=== PATIENT | female | born 2000 | race Hispanic/Latino ===

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

== ENCOUNTER 2019-01-13 06:38 | Outpatient (CLI) | payer OTHER ==
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
== END 2019-01-13 06:39 | disposition home or self-care (01) ==
LOC: BICULT 06:38
PROVIDERS: ATTEND Family Medicine
DX: O09.892 Supervision of other high risk pregnancies, second trimester (principal); Z3A.27 27 weeks gestation of pregnancy; O32.1XX0 Maternal care for breech presentation, not applicable or unspecified
CPT/HCPCS: 76805

== ENCOUNTER 2019-04-08 05:49 | Inpatient (IN) | payer OTHER ==
[2019-04-08 06:24] VITALS: BMI 47.5
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
[2019-04-08] MEDS ORDERED: Methylergonovine 0.2 MG/ML VIAL IM PRN (09:50)
[2019-04-08] MEDS ORDERED: Diphenoxylate HCl/Atropine Tablet PO PRN (09:50)
[2019-04-08] MEDS ORDERED: Butorphanol Tartrate 1 MG/ML VIAL SLOW IVP PRN (09:50)
[2019-04-08] MEDS ORDERED: HYDROcodone/Acetaminophen 5/325 mg Tablet PO PRN ×3 (09:50→21:10)
[2019-04-08] MEDS ORDERED: Carboprost 250 MCG/ML AMP IM PRN (09:50)
[2019-04-08] MEDS ORDERED: Lidocaine 1% (PF) 30 ML VIAL SC PRN (09:50)
[2019-04-08] MEDS ORDERED: Misoprostol 200 MCG TAB PR PRN (09:50)
[2019-04-08] MEDS ORDERED: Ibuprofen 800 MG TAB PO PRN (09:50)
[2019-04-08] MEDS ORDERED: Ondansetron PF 4 MG/2 ML Vial IVP PRN ×3 (09:50→21:10)
[2019-04-08] MEDS ORDERED: Promethazine HCl 25 MG/ML VIAL IM PRN ×2 (09:50→12:48)
[2019-04-08] MEDS ORDERED: NS / Oxytocin 40 units/1000ml 1,000 ML IV PRN (09:50)
[2019-04-08] MEDS ORDERED: NS w/ Oxytocin 10 units 500 ML IV SCH ×2 (10:00)
[2019-04-08 10:19] LABS: Hemoglobin 10.8 g/dL (12.0-16.0); Mean Corpuscular HGB CONC 33.5 g/dL (32.0-36.0); Mean Corpuscular Hemoglobin 29.2 pg (25.0-35.0); Mean Platelet Volume 7.8 fL (7.4-10.4); Platelet Count 208 thou/uL (130-400); RBC Distribution Width 15.6 % (11.5-14.5); White Blood Cell (WBC) Count 9.6 thou/uL (4.8-10.8)
[2019-04-08 11:07] LABS: HBSAg Index 0.37 S/CO (0-0.99); Hep B Surf Ag Non-Reactive S/CO (NonReactive); Syphilis Antibody Nonreactive (Nonreactive); Syphilis Antibody Index 0.03 S/CO (<1.00 Non-Reactive)
[2019-04-08] MEDS ORDERED: ePHEDrine/0.9% NaCl/PF SYRINGE 50 mg/10 ml SLOW IVP PRN (12:48)
[2019-04-08] MEDS ORDERED: Naloxone HCl 0.4 mg/ml Vial IVP PRN ×2 (12:48)
[2019-04-08] MEDS ORDERED: Lactated Ringer's 500 ML IV PRN (12:48)
[2019-04-08] MEDS ORDERED: Acetaminophen 325 MG TAB PO PRN (12:48)
[2019-04-08] MEDS ORDERED: diphenhydrAMINE 50 MG/ML VIAL IVP PRN (12:48)
[2019-04-08] MEDS ORDERED: Fentanyl 4 mcg/Bup 0.1% Cadd 100 ML ONE (12:49)
[2019-04-08] MEDS ORDERED: Fentanyl 4 mcg/Bupivacaine 0.1% Cassette 100 ML EPIDURAL SCH (13:00)
[2019-04-08] MEDS ORDERED: Communication Order-Pharmacy FS SCH (13:00)
[2019-04-08] MEDS: Lactated Ringer's 1,000 ML IV SCH (13:10)
[2019-04-08] MEDS ORDERED: diphenhydrAMINE 25 MG CAP PO PRN (21:10)
[2019-04-08] MEDS ORDERED: NS / Oxytocin 40 units/1000ml 1,000 ML IV SCH (21:10)
[2019-04-08] MEDS ORDERED: Benzocaine-Menthol 82.5 ML CAN TOP PRN (21:10)
[2019-04-08] MEDS ORDERED: Bisacodyl 10 MG SUPP PR PRN (21:10)
[2019-04-08] MEDS ORDERED: Lanolin Ointment 7 GM TUBE TOP PRN (21:10)
[2019-04-08] MEDS ORDERED: Milk Of Magnesia 30 ML UDCUP PO PRN (21:10)
[2019-04-08] MEDS: Ibuprofen 800 MG TAB PO SCH (21:49)
[2019-04-08] MEDS: Docusate Calcium (SURFAK) 240 MG CAP PO SCH (21:49)
[2019-04-09 05:55] LABS: Hemoglobin 10.2 g/dL (12.0-16.0); Mean Corpuscular HGB CONC 33.9 g/dL (32.0-36.0); Mean Corpuscular Hemoglobin 29.6 pg (25.0-35.0); Mean Corpuscular Volume 87.4 fL (78.0-98.0); Platelet Count 184 thou/uL (130-400); RBC Distribution Width 15.5 % (11.5-14.5); Red Blood Cell (RBC) Count 3.45 mill/uL (4.00-5.20); White Blood Cell (WBC) Count 11.1 thou/uL (4.8-10.8)
[2019-04-09] MEDS: Ibuprofen 800 MG TAB PO SCH ×2 (06:22→14:13)
[2019-04-09] MEDS: Docusate Calcium (SURFAK) 240 MG CAP PO SCH (08:45)
[2019-04-09] MEDS: Ferrous Sulfate 325 MG TAB PO SCH ×2 (08:46→16:21)
[2019-04-09] MEDS ORDERED: Prenatal Vitamin 1 TAB PO SCH (09:00)
[2019-04-09 16:03] VITALS: BP 119/67; TEMP 98.3
[2019-04-09] MEDS ORDERED: Measles/Mumps/Rubella 10 MCG/0.5 ML VIAL SC ONE (18:30)
== END 2019-04-09 19:33 | disposition home or self-care (01) | DRG 807 ==
LOC: L&D/OP 05:49 → L&D 10:06 → 3SW 20:41
PROVIDERS: ADMIT Family Medicine; ATTEND Family Medicine
PROC: 10E0XZZ Delivery of Products of Conception, External Approach (ICD-10-PCS; principal; 2019-04-08)
DX: O99.214 Obesity complicating childbirth (principal); Z37.0 Single live birth; E66.9 Obesity, unspecified; Z3A.39 39 weeks gestation of pregnancy
CPT/HCPCS: 36415; 85027; 86780; 86850; 86900; 86901; 87340; 90707; J2590

== ENCOUNTER 2019-04-13 09:59 | Emergency (ER) | payer OTHER ==
[2019-04-13 10:33] LABS: Bilirubin Negative (Negative); Blood, Urine Small (Negative); Clarity Clear (Clear); Glucose, Urine (Dipstick) Negative (Negative); Leukocyte Negative (Negative); Nitrite Negative (Negative); Protein, Urine (Dipstick) Negative (Neg-Trace); Specific Gravity, Urine 1.015 (1.005-1.030); Urobilinogen 0.2 mg/dL (0.2-1.0); pH, Urine 6.5 (5.0-9.0)
[2019-04-13 10:35] LABS: Bacteria/HPF None Seen HPF (None Seen); RBC/HPF 0-3 HPF (0-3); Squamous Epithelial 0-3 HPF (0-3); WBC/HPF 0-3 HPF (0-3)
== END 2019-04-13 10:53 | disposition home or self-care (01) ==
LOC: SCSER 09:59
DX: O99.89 Other specified diseases and conditions complicating pregnancy, childbirth and the puerperium (principal); R10.30 Lower abdominal pain, unspecified; Z79.1 Long term (current) use of non-steroidal anti-inflammatories (NSAID); Z79.899 Other long term (current) drug therapy
CPT/HCPCS: 51701; 81003; 81015; A4353

== ENCOUNTER 2020-02-28 22:28 | Emergency (ER) | payer MEDICAID, OTHER | END 2020-02-28 23:36 | disposition home or self-care (01) | LOC: ERS 22:28 | DX: J30.9 Allergic rhinitis, unspecified (principal); H66.93 Otitis media, unspecified, bilateral | CPT/HCPCS: 99283 ==

== ENCOUNTER 2020-04-15 20:54 | Emergency (ER) | payer SELFPAY ==
[2020-04-15 22:13] LABS: Bacteria/HPF None Seen HPF (None Seen); Bilirubin Negative (Negative); Blood, Urine 1+ (Negative); Clarity Clear (Clear); Glucose, Urine (Dipstick) Normal (Negative); Leukocyte Negative Leu/uL (Negative); Nitrite Negative (Negative); Protein, Urine (Dipstick) 20 mg/dL (Neg-Trace); RBC/HPF Greater than 50 HPF (0-3); Squamous Epithelial 0-3 HPF (0-3); Urobilinogen Normal mg/dL (Less than 2)
[2020-04-15 22:13] LABS: #Eosinphils 0.1 thou/uL (0.0-0.7); #Lymphocytes 1.7 thou/uL (1.20-3.40); #Monocytes 0.7 thou/uL (0.11-0.59); #Neutrophils 6.2 thou/uL (1.40-6.50); %Basophils 0.6 % (0.0-1.0); %Eosinophils 1.4 % (0.0-10.0); %Lymphocytes 19.9 % (28.0-48.0); %Monocytes 7.6 % (0.0-4.0); %Neutrophils 70.5 % (31.0-61.0); Hemoglobin 11.6 g/dL (12.0-16.0); Mean Corpuscular HGB CONC 34.7 g/dL (32.0-36.0); Mean Corpuscular Hemoglobin 30.8 pg (25.0-35.0); Mean Corpuscular Volume 88.5 fL (78.0-98.0); Mean Platelet Volume 7.6 fL (7.4-10.4); Platelet Count 270 thou/uL (130-400); RBC Distribution Width 13.3 % (11.5-14.5); Red Blood Cell (RBC) Count 3.77 mill/uL (4.00-5.20); White Blood Cell (WBC) Count 8.8 thou/uL (4.8-10.8)
[2020-04-15] MEDS ORDERED: Acetaminophen 500 MG TAB ONE (23:53)
--- NOTE | 2020-04-16 09:35 | ULT ---
PELVIC ULTRASOUND: HISTORY: Seven weeks since last menstrual period. Pelvic pain. FINDINGS: Rela-time imaging of the pelvis was obtained transabdominally as well as with an endovaginal probe. This shows an intrauterine gestational sac with yolk sac and pole. [place] to rump length measur ements are 1 cm corresponding to 7 weeks 1 day. Gestational sac measurements are 2 cm corresponding to 6 weeks 6 days. heart rate is 130 b.p.m. The right ovary is not visualized. The left ovary is normal in appearance. DOPPLER EVALUATION WITH SPECTRAL ANALYSIS: Normal flow is shown to the left ovary. IMPRESSION: Intrauterine gestational sac and pole with measurements corresponding to a gestational age of 7 weeks 0 days, estimated date of delivery 12/02/2020. POS: [facility]
== END 2020-04-16 01:06 | disposition home or self-care (01) ==
LOC: ERS 20:54
DX: O99.89 Other specified diseases and conditions complicating pregnancy, childbirth and the puerperium (principal); R10.32 Left lower quadrant pain; Z3A.01 Less than 8 weeks gestation of pregnancy
CPT/HCPCS: 36415; 76856; 81003; 81015; 84702; 85025; 86850; 86900; 86901; 96360; 96361

== ENCOUNTER 2020-05-20 14:05 | Emergency (ER) | payer MEDICAID, OTHER ==
[2020-05-20 14:39] LABS: Bilirubin Negative (Negative); Blood, Urine 3+ (Negative); Clarity Clear (Clear); Glucose, Urine (Dipstick) Normal (Negative); Ketone, Urine 40 mg/dL (Negative); Leukocyte 250 Leu/uL (Negative); Nitrite Negative (Negative); Protein, Urine (Dipstick) 20 mg/dL (Neg-Trace); RBC/HPF Greater than 50 HPF (0-3); Specific Gravity, Urine 1.024 (1.002-1.036); Urobilinogen Normal mg/dL (Less than 2); WBC/HPF 21-50 HPF (0-3)
[2020-05-20 14:40] LABS: Bacteria/HPF 1+ HPF (None Seen)
[2020-05-20 15:01] LABS: #Lymphocytes 0.9 thou/uL (1.20-3.40); #Monocytes 0.5 thou/uL (0.11-0.59); #Neutrophils 8.3 thou/uL (1.40-6.50); %Basophils 0.1 % (0.0-1.0); %Eosinophils 0.2 % (0.0-10.0); %Lymphocytes 8.8 % (28.0-48.0); %Monocytes 4.9 % (0.0-4.0); Hemoglobin 11.8 g/dL (12.0-16.0); Mean Corpuscular HGB CONC 33.2 g/dL (32.0-36.0); Mean Corpuscular Hemoglobin 29.8 pg (25.0-35.0); Mean Corpuscular Volume 89.7 fL (78.0-98.0); Mean Platelet Volume 7.2 fL (7.4-10.4); Platelet Count 223 thou/uL (130-400); RBC Distribution Width 13.6 % (11.5-14.5); Red Blood Cell (RBC) Count 3.94 mill/uL (4.00-5.20); White Blood Cell (WBC) Count 9.6 thou/uL (4.8-10.8)
[2020-05-20] MEDS ORDERED: Metoclopramide HCl 10 MG/2 ML VIAL ONE (15:20)
[2020-05-20] MEDS ORDERED: diphenhydrAMINE 50 MG/ML VIAL ONE (15:20)
[2020-05-20 15:23] LABS: ALT (SGPT) 13 U/L (8-55); AST (SGOT) 13 U/L (5-34); Alkaline Phosphatase 50 U/L (40-100); Anion Gap 16 mmol/L (10-20); BUN (Urea Nitrogen) 8 mg/dL (7.0-18.7); Bilirubin, Total 0.4 mg/dL (0.2-1.2); Calc. Creatinine Clearance 0 mL/min (70-130); Calcium 9.3 mg/dL (7.8-10.44); Carbon Dioxide 18 mmol/L (22-29); Chloride 103 mmol/L (98-107); Estimated GFR-MDRD Greater than 90; Globulin 3.4 g/dL (2.4-3.5); Glucose 82 mg/dL (70-105); Potassium 3.6 mmol/L (3.5-5.1); Protein, Total 7.4 g/dL (6.0-8.3); Sodium 133 mmol/L (136-145)
--- NOTE | 2020-05-20 16:30 | RAD ---
XR Chest 1 View Portable HISTORY: Dyspnea COMPARISON: 10/31/2017 FINDINGS: The heart size is normal. The lungs are without focal areas of consolidation, pneumothorax or pleural effusions. IMPRESSION: No radiographic evidence of acute cardiopulmonary process.
--- NOTE | 2020-05-20 17:28 | CT ---
Exam: CT angiogram of the chest HISTORY: Dyspnea COMPARISON: None TECHNIQUE: CT angiogram of the chest is performed in the axial plane. Three-dimensional reformatted i mages are submitted for interpretation FINDINGS: Mediastinum: No mass, lymphadenopathy or hematoma. HEART: Normal size. No significant pericardial fluid. Aorta: No aneurysm or dissection Upper solid abdominal viscera: No abnormality enhancement. Trachea and central bronchi: Patent Pleural spaces: No effusion Lung parenchyma: No masses or consolidation. Pneumothorax: None Osseous structures: No lytic or blastic lesions Pulmonary arteries:Suboptimal evaluation the pulmonary nodules system due to timing of contrast bolus . No obvious central filling defect. Evaluation of the lobar, segmental and subsegmental arteries is limited. IMPRESSION: 1. Limited evaluation due to timing of contrast bolus. No obvious central pulmonary artery embolism.
[2020-05-20] MEDS ORDERED: Acetaminophen 500 MG TAB ONE (19:39)
[2020-05-21 12:13] LABS: SARS-CoV-2 MS2 Positive; SARS-CoV-2 N Gene Negative; SARS-CoV-2 S Gene Negative; SARS-CoV-2 by NAA Not Detected (NotDetected); SARS-CoV-2 orf1ab Negative
== END 2020-05-20 19:56 | disposition home or self-care (01) ==
LOC: ERS 14:05
DX: O23.42 Unspecified infection of urinary tract in pregnancy, second trimester (principal); O99.512 Diseases of the respiratory system complicating pregnancy, second trimester; J39.9 Disease of upper respiratory tract, unspecified; Z20.828 Contact with and (suspected) exposure to other viral communicable diseases; Z3A.15 15 weeks gestation of pregnancy
CPT/HCPCS: 36415; 71045; 71275; 80053; 81003; 81015; 85025; 85379; 87077; 87086; 87635; 93005; 96365; 96375; J1200; J2765; U0003

== ENCOUNTER 2020-07-12 14:36 | Outpatient (CLI) | payer OTHER ==
--- NOTE | 2020-07-12 15:31 | ULT ---
OB ULTRASOUND: HISTORY: anatomy FINDINGS: A single live intrauterine gestation is seen with measurements corresponding to an estimated gestatio nal age of 19 weeks 5 daysand NAVNEET at 12/01/2020. The estimated weight measures 310 g or 11 ounces (2% by Hadlock criteria). biometry: BPD: 4.39 cm, 19 weeks 2 days HC: 17.25 cm, 19 weeks 6 days AC: 14.30 cm, 19 weeks 5 days FL: 3.17 seen, 19 weeks 6 days heart rate: 149bpm Placenta: Anterior Placenta previa: No SHAMEKA: 15.1cm Cervical length: 4.2cm A three-vessel cord, cord insertion, kidneys, urinary bladder, stomach, lateral ventricles, cer ebellum, spine, upper and lower extremities are visualized. The cisterna magna, 4 chambered heart and lips/nose are not well seen due to patient's body habitus. No definite anomalies are seen i n the visualized portions. IMPRESSION: Single live intrauterine gestation of 19 weeks 5 daysestimated gestational age and NAVNEET at 12/01/2020
== END 2020-07-12 14:37 | disposition home or self-care (01) ==
LOC: BICULT 14:36
PROVIDERS: ATTEND Family Medicine
DX: Z34.82 Encounter for supervision of other normal pregnancy, second trimester (principal); Z3A.19 19 weeks gestation of pregnancy
CPT/HCPCS: 76805

== ENCOUNTER 2020-11-12 08:18 | Outpatient (CLI) | payer OTHER ==
[2020-11-12 18:22] LABS: SARS-CoV-2 PCR by NAA Not Detected (NotDetected)
== END 2020-11-12 08:19 | disposition home or self-care (01) ==
LOC: LABBT 08:18
PROVIDERS: ATTEND Family Medicine
DX: Z01.812 Encounter for preprocedural laboratory examination (principal); Z20.822 Contact with and (suspected) exposure to COVID-19
CPT/HCPCS: 87635; U0003; U0005

== ENCOUNTER 2020-11-15 19:15 | Inpatient (IN) | payer OTHER ==
[~2020-11-15 19:15] MED LIST: Bupivacaine HCl 0.25%/Epi 0.0005/PF 10 ML VIAL FS ONE
[2020-11-15] MEDS ORDERED: Carboprost 250 MCG/ML AMP IM PRN (20:17)
[2020-11-15] MEDS ORDERED: Ondansetron PF 4 MG/2 ML Vial IVP PRN (20:17)
[2020-11-15] MEDS ORDERED: Butorphanol Tartrate 1 MG/ML VIAL SLOW IVP PRN (20:17)
[2020-11-15] MEDS ORDERED: Misoprostol 200 MCG TAB PR PRN (20:17)
[2020-11-15] MEDS ORDERED: Lidocaine 1% (PF) 30 ML VIAL SC PRN (20:17)
[2020-11-15] MEDS ORDERED: HYDROcodone/Acetaminophen 5/325 mg Tablet PO PRN (20:17)
[2020-11-15] MEDS ORDERED: Promethazine HCl 25 MG/ML VIAL IM PRN (20:17)
[2020-11-15] MEDS ORDERED: Methylergonovine 0.2 MG/ML VIAL IM PRN (20:17)
[2020-11-15] MEDS ORDERED: hydrALAZINE 20 MG/ML VIAL SLOW IVP PRN (20:17)
[2020-11-15] MEDS ORDERED: NS / Oxytocin 40 units/1000ml 1,000 ML IV PRN (20:17)
[2020-11-15] MEDS ORDERED: Ibuprofen 800 MG TAB PO PRN (20:17)
[2020-11-15] MEDS ORDERED: Diphenoxylate HCl/Atropine Tablet PO PRN (20:17)
[2020-11-15] MEDS ORDERED: NS w/ Oxytocin 30 units 500 ML IVPB SCH ×2 (20:30)
[2020-11-15 20:34] VITALS: BMI 47.8
[2020-11-15] MEDS ORDERED: Penicillin G Potassium 5 MILL.UNITS in Sodium Chloride 0.9% 100 ML IVPB SCH (21:30)
[2020-11-15 21:34] LABS: Hemoglobin 11.6 g/dL (12.0-16.0); Mean Corpuscular HGB CONC 33.5 g/dL (32.0-36.0); Mean Corpuscular Hemoglobin 29.1 pg (27.0-31.0); Mean Corpuscular Volume 86.9 fL (78.0-98.0); Platelet Count 231 thou/uL (130-400); RBC Distribution Width 16.2 % (11.5-14.5); White Blood Cell (WBC) Count 9.3 thou/uL (4.8-10.8)
[2020-11-15] MEDS: Lactated Ringer's 1,000 ML IV SCH (21:35)
[2020-11-15] MEDS: Misoprostol 100 MCG TAB PO SCH (21:41)
[2020-11-15] MEDS: Penicillin G 2.5 MILL.units 2.5 MILL.UNITS in Premix Bag 1 BAG IVPB SCH (21:50)
[2020-11-15] MEDS ORDERED: Acetaminophen 500 MG TAB PO PRN (22:05)
[2020-11-15 22:18] LABS: Syphilis Antibody Nonreactive (Nonreactive); Syphilis Antibody Index 0.12 S/CO (<1.00 Non-Reactive)
[2020-11-15 22:56] LABS: HBSAg Index 0.19 S/CO (0-0.99); Hep B Surf Ag Non-Reactive S/CO (NonReactive)
[2020-11-16] MEDS: Penicillin G 2.5 MILL.units 2.5 MILL.UNITS in Premix Bag 1 BAG IVPB SCH ×5 (02:06→19:31)
[2020-11-16] MEDS: Misoprostol 100 MCG TAB PO SCH ×3 (03:56→19:27)
[2020-11-16] MEDS ORDERED: Fentanyl 4 mcg/Bup 0.1% Cadd 100 ML ONE ×2 (07:46→17:30)
[2020-11-16] MEDS ORDERED: Ondansetron PF 4 MG/2 ML Vial IVP PRN ×2 (10:00→20:46)
[2020-11-16] MEDS ORDERED: Lactated Ringer's 500 ML IV PRN (10:00)
[2020-11-16] MEDS ORDERED: Naloxone HCl 0.4 mg/ml Vial IVP PRN ×2 (10:00)
[2020-11-16] MEDS ORDERED: Fentanyl 4 mcg/Bupivacaine 0.1% Cassette 100 ML EPIDURAL SCH (10:00)
[2020-11-16] MEDS ORDERED: diphenhydrAMINE 50 MG/ML VIAL IVP PRN (10:00)
[2020-11-16] MEDS ORDERED: Acetaminophen 325 MG TAB PO PRN (10:00)
[2020-11-16] MEDS ORDERED: Communication Order-Pharmacy FS SCH (10:00)
[2020-11-16] MEDS ORDERED: ePHEDrine 50 MG/ML VIAL SLOW IVP PRN (10:00)
[2020-11-16] MEDS ORDERED: Promethazine HCl 25 MG/ML VIAL IM PRN ×2 (10:00→20:46)
[2020-11-16] MEDS: Lactated Ringer's 1,000 ML IV SCH ×2 (19:27→22:05)
[2020-11-16] MEDS ORDERED: Preparation H Ointment 28 GM TUBE PR PRN (20:46)
[2020-11-16] MEDS ORDERED: NS / Oxytocin 40 units/1000ml 1,000 ML IV SCH (20:46)
[2020-11-16] MEDS ORDERED: Benzocaine-Menthol 82.5 ML CAN TOP PRN (20:46)
[2020-11-16] MEDS ORDERED: diphenhydrAMINE 25 MG CAP PO PRN (20:46)
[2020-11-16] MEDS ORDERED: Milk Of Magnesia 30 ML UDCUP PO PRN (20:46)
[2020-11-16] MEDS ORDERED: HYDROcodone/Acetaminophen 5/325 mg Tablet PO PRN ×2 (20:46)
[2020-11-16] MEDS ORDERED: hydrALAZINE 20 MG/ML VIAL SLOW IVP PRN (20:46)
[2020-11-16] MEDS ORDERED: Lanolin Ointment 7 GM TUBE TOP PRN (20:46)
[2020-11-16] MEDS ORDERED: Bisacodyl 10 MG SUPP PR PRN (20:46)
[2020-11-16] MEDS: Docusate Calcium (SURFAK) 240 MG CAP PO SCH (21:29)
[2020-11-16] MEDS: Ibuprofen 800 MG TAB PO SCH (21:29)
[2020-11-17] MEDS: Ibuprofen 800 MG TAB PO SCH ×2 (05:17→15:09)
[2020-11-17] MEDS: Docusate Calcium (SURFAK) 240 MG CAP PO SCH (08:36)
[2020-11-17] MEDS ORDERED: Prenatal Vitamin 1 TAB PO SCH (09:00)
[2020-11-17] MEDS ORDERED: Adacel (T-DAP) 0.5 ML SYRINGE IM ONE (09:00)
[2020-11-17] MEDS: Ferrous Sulfate 325 MG TAB PO SCH (19:38)
[2020-11-17 20:06] VITALS: BP 114/57; TEMP 97.6
== END 2020-11-17 20:40 | disposition home or self-care (01) | DRG 807 ==
LOC: L&D 19:52 → 3SW 11-16 21:16
PROVIDERS: ADMIT Family Medicine; ATTEND Family Medicine
PROC: 10E0XZZ Delivery of Products of Conception, External Approach (ICD-10-PCS; principal; 2020-11-16)
PROC: 10907ZC Drainage of Amniotic Fluid, Therapeutic from Products of Conception, Via Natural or Artificial Opening (ICD-10-PCS; 2020-11-16)
PROC: 3E033VJ Introduction of Other Hormone into Peripheral Vein, Percutaneous Approach (ICD-10-PCS; 2020-11-16)
PROC: 3E0P7VZ Introduction of Hormone into Female Reproductive, Via Natural or Artificial Opening (ICD-10-PCS; 2020-11-16)
PROC: 0HQ9XZZ Repair Perineum Skin, External Approach (ICD-10-PCS; 2020-11-16)
DX: O24.420 Gestational diabetes mellitus in childbirth, diet controlled (principal); Z37.0 Single live birth; Z3A.39 39 weeks gestation of pregnancy; O99.214 Obesity complicating childbirth; E66.01 Morbid (severe) obesity due to excess calories; O99.824 Streptococcus B carrier state complicating childbirth; O70.0 First degree perineal laceration during delivery
CPT/HCPCS: 36415; 36416; 51702; 85027; 86780; 86850; 86900; 86901; 87340; J0595; J2405; J2540; J2550; J2590; J3490

== ENCOUNTER 2021-07-05 18:31 | Emergency (ER) | payer OTHER | END 2021-07-05 21:03 | disposition home or self-care (01) | LOC: ERS 18:31 | DX: L08.9 Local infection of the skin and subcutaneous tissue, unspecified (principal) | CPT/HCPCS: 99283 ==

== ENCOUNTER 2022-05-22 12:10 | Outpatient (CLI) | payer OTHER | END 2022-05-22 12:11 | disposition home or self-care (01) | LOC: BICRAD 12:10 | PROVIDERS: ATTEND Family Medicine | DX: M51.26 Other intervertebral disc displacement, lumbar region (principal); M43.17 Spondylolisthesis, lumbosacral region; M47.816 Spondylosis without myelopathy or radiculopathy, lumbar region | CPT/HCPCS: 72100 ==

== ENCOUNTER 2023-09-03 11:34 | Emergency (ER) | payer OTHER, SELFPAY ==
[~2023-09-03 11:34] MED LIST changes: -Bupivacaine HCl 0.25%/Epi 0.0005/PF 10 ML VIAL FS ONE; +Iopamidol-370 76% 500 ML MDV (1 ML CHARGE) ONE
[2023-09-03 12:08] LABS: #Eosinphils 0.1 thou/uL (0.0-0.7); #Monocytes 0.5 thou/uL (0.11-0.59); #Neutrophils 6.9 thou/uL (1.40-6.50); %Basophils 0.4 % (0.0-1.0); %Eosinophils 0.8 % (0.0-10.0); %Lymphocytes 15.5 % (21.0-51.0); %Monocytes 5.3 % (0.0-10.0); %Neutrophils 77.6 % (42.0-75.0); Hematocrit 37.2 % (36.0-47.0); Hemoglobin 12.5 g/dL (12.0-16.0); Mean Corpuscular HGB CONC 33.6 g/dL (32.0-36.0); Mean Corpuscular Hemoglobin 29.8 pg (27.0-31.0); Mean Corpuscular Volume 88.6 fl (78.0-98.0); Mean Platelet Volume 9.9 fL (7.4-10.4); Platelet Count 229 10x3/uL (130-400); RBC Distribution Width 13.4 % (11.5-14.5); White Blood Cell (WBC) Count 8.9 10x3/uL (4.8-10.8)
[2023-09-03 12:39] LABS: ALT (SGPT) 44 U/L (8-55); AST (SGOT) 27 U/L (5-34); Albumin 4.6 g/dL (3.5-5.0); Alkaline Phosphatase 69 U/L (40-110); Anion Gap 14 mmol/L (10-20); BUN (Urea Nitrogen) 15 mg/dL (7.0-18.7); Bilirubin, Total 0.3 mg/dL (0.2-1.2); Calc. Creatinine Clearance 0 mL/min (70-130); Calcium 9.4 mg/dL (7.8-10.44); Carbon Dioxide 22 mmol/L (22-29); Chloride 105 mmol/L (98-107); Estimated GFR 126; Globulin 3.4 g/dL (2.4-3.5); Glucose 107 mg/dL (70-105); Lipase 24 U/L (8-78); Potassium 3.7 mmol/L (3.5-5.1); Sodium 137 mmol/L (136-145)
[2023-09-03 12:52] LABS: BHCG - Serum Negative (NEGATIVE); Pregs Control Background? CLEAR/WHITE (CLR/WHITE); Pregs Control Bar Appear? YES (CONTROL BAR)
[2023-09-03 13:08] LABS: Pregnancy Test - Urine (BHCG) Negative (Negative); Pregu Control Background? CLEAR/WHITE (CLR/WHITE); Pregu Control Bar Appear? YES (CONTROL BAR); Specific Gravity 1.034 (1.002-1.036)
[2023-09-03 13:10] LABS: Bacteria/HPF 2+ HPF (None Seen); Bilirubin Negative (Negative); Blood, Urine 2+ (Negative); CAUTI Indications for Culture Dysuria,urgency,freq; Clarity Turbid (Clear); Glucose, Urine (Dipstick) Normal (Negative); Ketone, Urine Negative (Negative); Leukocyte 500 Leu/uL (Negative); Nitrite Negative (Negative); Protein, Urine (Dipstick) 30 mg/dL (Neg-Trace); Specific Gravity, Urine 1.034 (1.002-1.036); Squamous Epithelial 21-50 HPF (0-3); Urobilinogen Normal mg/dL (Less than 2); WBC/HPF Greater than 50 HPF (0-3); pH, Urine 5.5 (5.0-9.0)
[2023-09-03 13:14] LABS: Urine Culture Reflex Yes Yes
[2023-09-03] MEDS ORDERED: Acetaminophen 500 MG TAB ONE (15:05)
[2023-09-03] MEDS ORDERED: Ketorolac Tromethamine 30 MG/ML VIAL ONE (15:05)
== END 2023-09-03 15:30 | disposition home or self-care (01) ==
LOC: ERS 11:34
DX: M43.06 Spondylolysis, lumbar region (principal); N30.00 Acute cystitis without hematuria
CPT/HCPCS: 36415; 74177; 80053; 81001; 81025; 83690; 84703; 85025; 87086; 96374; J1885; Q9967

== ENCOUNTER 2024-10-16 18:30 | Emergency (ER) | payer BC ==
[2024-10-16] MEDS ORDERED: Ibuprofen 800 MG TAB ONE (19:23)
[2024-10-16] MEDS ORDERED: Acetaminophen 325 MG TAB ONE (19:23)
== END 2024-10-16 20:55 | disposition home or self-care (01) ==
LOC: ERS 18:30
DX: J02.0 Streptococcal pharyngitis (principal)
CPT/HCPCS: 87428; 87430; 99284